=== PATIENT | female | born 1965 | race Caucasian/White ===

== ENCOUNTER → 2017-11-19 | Outpatient (CLI) | payer OTHER ==
--- NOTE | 2017-11-19 15:47 | RAD ---
EXAM: Left knee, 2 views. HISTORY: Pain. COMPARISON: None. FINDINGS: 2 views left knee are obtained. There is no fracture, dislocation or subluxation. There is moderate medial and mild lateral compartment spurring. There is subchondral sclerosis. There is trace joint fluid without a significant effusion. IMPRESSION: 1. Moderate medial and mild lateral compartment osteoarthritis of the left knee. 2. No acute osseous finding. Electronically signed by: Yudelka Watkins MD (11/19/2017 3:43 PM) [facility]
--- NOTE | 2017-11-19 16:44 | RAD ---
Right ankle, 2 views, 11/19/2017: HISTORY: Ankle pain and limited mobility There has been an extensive surgical fusion at the ankle joint and hindfoot. There is a long intramedullary margot extending from the tibia through the fused talus into the calcaneus. There are 3 surgical screws related to the distal end of this margot. Several additional screw fragments extend into the posterior tibia at the level the fused ankle joint. There are several dense radiopacities projected over the calcaneus which may be due to old penetrating trauma. The distal fibula has been resected. Mild degenerative changes are present at the mid foot level. IMPRESSION: 1. Prior surgical fusion of the ankle joint and hindfoot as described above with multiple surgical implants in place. 2. Prior surgical resection of the distal fibula. 3. Mild degenerative change at the mid foot level. Electronically signed by: Roney Rahman MD (11/19/2017 4:40 PM) [facility]
== END | disposition home or self-care (01) ==
LOC: RAD 10:38
PROVIDERS: ATTEND Internal Medicine Infectious Disease
DX: M17.12 Unilateral primary osteoarthritis, left knee (principal); M76.892 Other specified enthesopathies of left lower limb, excluding foot; M19.071 Primary osteoarthritis, right ankle and foot
CPT/HCPCS: 73560; 73600

== ENCOUNTER → 2018-04-16 | Outpatient (CLI) | payer OTHER ==
[~2018-04-16] MED LIST: ALBUTEROL SULFATE 2.5 MG/3 ML NEBU. NEB ONE
== END | disposition home or self-care (01) ==
LOC: PF 08:11
PROVIDERS: ATTEND Internal Medicine Pulmonary Disease
DX: R06.02 Shortness of breath (principal); Z87.891 Personal history of nicotine dependence
CPT/HCPCS: 94060; 94640; 94729; J7613